=== PATIENT | female | born 1950 | race African-American/Black ===

== ENCOUNTER 2020-09-23 06:10 | Day surgery (SDC) | payer MEDICARE ==
[~2020-09-23] VITALS: Ht 162.6 cm; Wt 105.2 kg
[2020-09-23] MEDS ORDERED: SODIUM CHLORIDE 0.9% 1000ML 1,000 ML IV ONE (06:11)
[2020-09-23] MEDS ORDERED: METO-408 PO (07:51)
[2020-09-23] MEDS ORDERED: LACT10SO5 PO (07:51)
[2020-09-23] MEDS ORDERED: IRBE1TAB43 PO (07:51)
[2020-09-23] MEDS ORDERED: AEC81 PO (07:51)
[2020-09-23] MEDS ORDERED: PREN-154 PO (07:51)
[2020-09-23] MEDS ORDERED: CALC-1038 PO (07:51)
[2020-09-23] MEDS ORDERED: BICT1TAB PO (07:51)
[2020-09-23] MEDS ORDERED: HYDR-4153 PO (07:55)
[2020-09-23] MEDS ORDERED: AMLO-258 PO (07:55)
[2020-09-23] MEDS ORDERED: FURO20TA4 PO (07:55)
[2020-09-23] MEDS ORDERED: ALLO100T PO (07:55)
[2020-09-23] MEDS ORDERED: CITA10TA7 PO (07:55)
[2020-09-23] MEDS ORDERED: MV-M1TAB20 PO (07:55)
[2020-09-23] MEDS ORDERED: PROPOFOL 10 MG/ML 20ML VIAL IV ONE (09:13)
[2020-09-23] MEDS ORDERED: OXYMETAZOLINE HCL SPRAY 15 ML BOTTLE ONE (09:36)
[2020-09-23 09:40] VITALS: BP 132/64
[2020-09-23 09:45] VITALS: BP 130/68
[2020-09-23 09:50] VITALS: BP 138/72
[2020-09-23 09:55] VITALS: BP 148/74
== END 2020-09-23 10:15 ==
LOC: DAH 06:10 → ENDO 06:10
PROVIDERS: ATTEND Internal Medicine
DX: D50.9 Iron deficiency anemia, unspecified (principal); K44.9 Diaphragmatic hernia without obstruction or gangrene; K22.8 Other specified diseases of esophagus; K31.89 Other diseases of stomach and duodenum; K55.20 Angiodysplasia of colon without hemorrhage; K64.0 First degree hemorrhoids; Z20.828 Contact with and (suspected) exposure to other viral communicable diseases
CPT/HCPCS: 43239; 45378; 93005; A4215 ×2; A4221; A4222; A4223; A4606; A4620; A4657; A4663; C9803; J2704; J7030; U0003